=== PATIENT | male | born 1960 | race Caucasian/White ===

== ENCOUNTER 2024-03-12 10:40 | Emergency (ER) | payer MEDICARE ==
[~2024-03-12] VITALS: Ht 170.2 cm; Wt 108.7 kg
[2024-03-12 12:14] VITALS: BP 171/79; PULSE 72; RESP 16; O2SAT 95
[2024-03-12] MEDS ORDERED: SULF1TAB49 PO (13:13)
[2024-03-12 13:23] VITALS: TEMP 98.8
== END 2024-03-12 13:27 | disposition home or self-care (01) ==
LOC: ER 10:41
DX: L02.31 Cutaneous abscess of buttock (principal); L03.317 Cellulitis of buttock
CPT/HCPCS: 99283